=== PATIENT | female | born 1975 | race Caucasian/White ===

== ENCOUNTER 2023-07-11 16:22 | Emergency (ER) | payer BC, SELFPAY ==
[2023-07-11 16:24] VITALS: BP 146/84
[2023-07-11 17:34] VITALS: BMI 31.5
[2023-07-11 17:37] VITALS: BP 111/81
[2023-07-11 17:52] LABS: % Basophils 0.5 % (0-2); % Eosinophils 0.4 % (0-6); % Immature Granulocytes 0.1 % (0-0.5); % Lymphocytes 27.2 % (20.5-51.1); % Monocytes 6.2 % (1.7-9.3); % Neutrophils 65.6 % (42.2-75.2); Absolute Monocytes 0.5 10^3/uL (0.1-0.6); Absolute Neutrophils 4.9 10^3/uL (1.4-6.5); Hematocrit 34.3 % (37.0-47.0); Hemoglobin 11.1 g/dL (12.0-16.0); Mean Corp Hgb Conc. 32.4 g/dL (33.0-37.0); Mean Corpuscular Hgb 26.9 pg (27.0-31.0); Mean Corpuscular Volume 83.1 fL (81.0-99.0); Mean Platelet Volume 10.3 fL (7.4-10.4); Nucleated Red Blood Cells % 0 %; Platelet Count 314 10^3/uL (130-400); Red Blood Cell Count 4.13 10^6/uL (4.20-5.40); Red Cell Dist. Width 12.5 % (11.5-14.5); White Blood Cell Count 7.4 10^3/uL (4.8-10.8)
[2023-07-11 18:04] LABS: ALT (SGPT) 23 U/L (0-35); AST (SGOT) 34 U/L (14-36); Albumin 4.2 g/dl (3.5-5.0); Alkaline Phosphatase 97 U/L (38-126); Blood Urea Nitrogen 14 mg/dl (7-17); Calcium 10.1 mg/dl (8.4-10.2); Carbon Dioxide 25 mmol/L (22-30); Chloride 102 mmol/L (98-107); Estimated Creatinine Clearance 104 ml/min; Glucose 140 mg/dl (70-99); Sodium 137 mmol/L (135-145); Total Bilirubin 0.9 mg/dl (0.2-1.3); Total Protein 7.7 g/dl (6.3-8.2); eGFR > 60.00
[2023-07-11 18:05] LABS: Lipase 83 U/L (23-300)
[2023-07-11] MEDS: TORADOL 15 MG IV (18:42)
[2023-07-11 18:44] LABS: Urine Albumin Negative (Neg - Trace); Urine Bilirubin Negative (Negative); Urine Character Clear (Clear); Urine Color Yellow; Urine Glucose Negative (Negative); Urine Ketone Negative (Negative); Urine Leukocyte Negative (Negative); Urine Nitrite Negative (Negative); Urine Occult Blood Trace (Negative); Urine Urobilinogen Negative (Neg - 1+)
[2023-07-11 18:53] LABS: Urine Bacteria Few (Negative); Urine Red Blood Cell 0-2 /HPF (0-2); Urine Squamous Cell 0-2 /LPF (Few); Urine White Cell 0-2 /HPF (0-5)
--- NOTE | 2023-07-11 20:18 | ED.GENMED ---
History of Present Illness
General
Chief Complaint: Flank Pain
Time Seen by Provider: 07/11/23 17:06
Travel History
Have you had any contact with someone who has COVID-19?: No
Do you have any symptoms of coronavirus? Fever > 100 degrees, chills, cough, shortness of breath, sore throat, loss of taste or smell, muscle aches, or headache?: No
History of Present Illness
History of Present Illness:
48-year-old female presents the emergency department for evaluation of right upper quadrant abdominal pain ongoing for the past 2 to 3 days. Pain is constant but seems to worsen about 30 minutes after food intake. Denies any associated nausea or
vomiting. Denies any lower urinary tract voiding symptoms, diarrhea, fever, chills, or sweats. Prior abdominal surgery includes hysterectomy
Past History
Past History
ED Past Medical History: None
ED Past Surgical History: Gynecological and Tonsilectomy
Social History
Tobacco: Non-smoker
Alcohol: None
Drug: None
Personal:
Living: with family
Employment: Employed (software)
Family History
Family History: Other (n/c)
Review of Systems
Review of Systems
Allergies reviewed?: Yes
All Other Systems: ROS reviewed and negative except as documented in HPI and ROS
Phy Exam
Physical Exam
Physical Exam:
GEN: Well appearing, NAD, WDWN
Eyes: PERRLA, EOMs intact, no scleral icterus
HENT: NCAT, oral mucosa moist
Lungs: CTAB, no wheezes, rales, rhonchi, normal chest wall excursion
Cardiac: RRR, no M/R/G, no peripheral edema. Radial pulses 2+ bilat
Abdomen: Soft, mild epigastric and right upper quadrant tenderness, negative Barrios sign
Neuro: AO x 3
MSK: No gross deformity or ecchymosis. No edema. No digital clubbing
Skin: No rashes, petechiae. Normal color, no pallor or jaundice.
Psych: Calm, cooperative, proper hygiene
Course
Orders/Labs/Results
Orders:
Orders
07/11/23 17:35
Ketorolac [Toradol] 15 mg IV NOW STA
US Abdomen Complete/Upper Urgent
Comment:
Reason For Exam: RUQ pain
07/11/23 17:40
Complete Blood Count/With Diff Urgent
Comprehensive Metabolic Panel Urgent
Lipase Urgent
07/11/23 18:38
Urinalysis Reflex To Culture Urgent
Date Specimen was Collected: 07/11/23
Time Specimen was Collected: 18:08
Urine Microscopic Reflex Cult Urgent
Abnormal Lab Results
07/11/23 07/11/23
17:40 18:38
RBC 4.13 L 10^6/uL
(4.20-5.40)
Hgb 11.1 L g/dL
(12.0-16.0)
Hct 34.3 L %
(37.0-47.0)
MCH 26.9 L pg
(27.0-31.0)
MCHC 32.4 L g/dL
(33.0-37.0)
Glucose 140 H mg/dl
(70-99)
Ur Occult Blood Reflex Trace A
(Negative)
Urine Bacteria (Reflex) Few A
(Negative)
07/11/23 17:40
07/11/23 17:40
Vital Signs
Initial and Last Documented VS:
Initial Vital Signs
Temp Pulse Resp BP Pulse Ox
99 F 101 16 146/84 96
07/11/23 16:24 07/11/23 16:24 07/11/23 16:24 07/11/23 16:24 07/11/23 16:24
Last Documented Vital Signs
Temp Pulse Resp BP Pulse Ox
98.6 F 89 18 111/81 96
07/11/23 17:37 07/11/23 17:37 07/11/23 17:37 07/11/23 17:37 07/11/23 17:37
MDM/Problems Addressed
MDM/Problems Addressed:
Workup is negative, likely gastritis given increased NSAID use recently and use of SSRIs. Will start PPIs and Carafate
*Critical Care Note
Total Time (30-74mins, 75-104mins- exclusive of procedures): Not Applicable
ED Attending Note
-
Portions of this chart may have been created with voice recognition software.� Occasional wrong word or��sound alike� substitutions may have occurred due to the inherent limitations of voice recognition software.
Discharge Plan
Departure
Patient Disposition: Home (Routine Discharge)
Date of Disposition: 07/11/23
Time of Disposition: 20:20
Patient with high blood pressure during this ER visit?: No
Discharge Problem:
Gastritis
Instructions: Gastritis (DC)
Prescriptions:
New
pantoprazole [Protonix] 40 mg tablet,delayed release (DR/EC)
40 mg PO DAILY Qty: 14 0RF
sucralfate [Carafate] 1 gram tablet
1 g PO AC Qty: 30 0RF
No Action
conjugated estrogens [Premarin] 0.625 MG tablet
0.625 mg PO DAILY
fluoxetine 20 MG capsule
30 mg PO DAILY
cholecalciferol (vitamin D3) [Vitamin D3] 2,000 UNIT capsule
2,000 unit PO DAILY
Referrals:
Rubi Nieto NP [Family Provider] -
Interventions
Interventions:
*Risk Screen - Suicide Last Done: 07/11/23 16:24
*General Assessment Last Done: 07/11/23 16:24
*Neglect/Abuse Screening Last Done: 07/11/23 16:24
YF-Ipmabt-Bgvnxlxdpl Assessment Last Done: 07/11/23 17:31
ED-Female Genitourinary Assessment Last Done: 07/11/23 17:31
Discharge Date and Time
Print Language: MONGOLIAN
[2023-07-11] MEDS: PROTONIX IV 40 MG IV (20:24)
[2023-07-11 20:34] VITALS: BP 110/80
== END 2023-07-11 20:36 | disposition home or self-care (01) ==
LOC: EMR 16:22
PROVIDERS: Physician Assistant; EMERGENCY PHYSICIAN Emergency Medicine; FAMILY PHYSICIAN Internal Medicine
DX: K29.00 Acute gastritis without bleeding (principal); Z88.1 Allergy status to other antibiotic agents; Z88.2 Allergy status to sulfonamides; Z88.8 Allergy status to other drugs, medicaments and biological substances; Z91.048 Other nonmedicinal substance allergy status
CPT/HCPCS: 99284; 96374; 96375; 76700; 80053; 81003; 81015; 83690; 85025

== ENCOUNTER → 2023-07-16 12:10 | Outpatient (REF) | payer BC, SELFPAY | LOC: HWRAD 12:10 | PROVIDERS: ATTENDING PHYSICIAN Internal Medicine; FAMILY PHYSICIAN Internal Medicine | DX: R31.9 Hematuria, unspecified (principal); R07.81 Pleurodynia; R10.11 Right upper quadrant pain | CPT/HCPCS: 71101; 74176 ==

== ENCOUNTER 2024-09-10 06:33 | Emergency (ER) | payer BC, SELFPAY ==
[2024-09-10 06:37] VITALS: BP 140/83
--- NOTE | 2024-09-10 07:11 | ED.GENMED ---
History of Present Illness
General
Chief Complaint: Chest Pain
Time Seen by Provider: 09/10/24 07:11
History of Present Illness
History of Present Illness:
PAST MEDICAL HISTORY AND REVIEW OF OLD RECORDS
- The patient has a history of mitral valve prolapse and is a former smoker. I reviewed records, the patient was seen here diagnosed with gastritis last year. She was also here 7 years ago with alcohol intoxication.
Note:
CHIEF COMPLAINT(S)
Chest pain.
HISTORY OF PRESENT ILLNESS
The patient is a 49-year-old female who presented with the primary complaint of chest pain. The pain started yesterday and has been described as a 'weird pain' located centrally in the chest. The patient mentioned that this pain initially occurred
when she held her breath and felt like it was moving around. The pain is exacerbated when breathing in, although the patient is uncertain if it is due to anxiety. There was no significant pain upon palpation of the chest or upper abdomen. This
morning, the patient experienced that the pain did not feel right during activities like walking and stretching. There is no recent history of blood clots, though she mentioned a family history of blood clots. She reported a previous diagnosis of
gastritis about a year ago, but her current pain does not resemble her previous symptoms associated with that condition. There is no vomiting or significant swelling in the legs.
EXTERNAL RECORDS REVIEWED
The patients EKG was reviewed and appeared normal, indicating no immediate need for intervention. A history of gastritis from a year ago was noted.
SOCIAL HISTORY
The patient is a former cigarette smoker, having quit smoking several years ago.
REVIEW OF SYSTEMS
- Respiratory: Pain with inhalation.
- Gastrointestinal: No vomiting, no burning sensation similar to previous gastritis.
- Cardiovascular: Chest pain, no lower extremity swelling.
PHYSICAL EXAM
General: Alert, but appears uncomfortable when she changes position of her torso
Skin: Warm, dry.
Head: Normocephalic, atraumatic.
Neck: Supple, trachea midline.
Eye, Ears, Nose, Mouth and Throat: Oral mucosa moist.
Cardiovascular: Normal peripheral perfusion, no edema. No murmurs, regular rhythm, very mild anterior chest wall tenderness. No rubs
Respiratory: Respirations are non-labored. Breath sounds clear
Gastrointestinal: Abdomen non-distended.
Back: Normal range of motion, normal alignment.
Musculoskeletal: Normal range of motion, normal strength.
Neurological: Alert and oriented to person, place, time, and situation, no focal neurological deficit observed.
Psychiatric: Cooperative, appropriate mood and affect. She does appear somewhat anxious though
PLAN
1. Perform blood work, including cardiac biomarkers.
2. Conduct a chest X-ray.
3. Investigate gastrointestinal causes, such as gastritis.
4. Consider treatment with an antacid, such as Pepsid and Maalox.
5. Monitor and evaluate the need for further cardiac evaluation based on test results.
DIFFERENTIAL DIAGNOSIS
The Differential Diagnosis includes, in no particular order and is not limited to:
1. Gastroesophageal reflux disease (GERD)
2. Myocardial ischemia
3. Pulmonary embolism
4. Costochondritis
5. Anxiety or panic attack
6. Pleurisy
7. Pneumonia
8. Aortic dissection
9. Pericarditis
10. Gastritis
RADIOLOGY
- Chest x-ray shows no acute abnormality.
EKG
- Sinus 83, leftward axis deviation, no acute ST abnormality, no significant change from 03/04/2017
LABS
- White count normal, hemoglobin 11.2, D-dimer 0.32, chemistries unremarkable, minimal elevation of transaminases which are insignificant, troponin less than 0.012, lipase normal
UPDATE
- Gave Carafate (sulfa allergy therefore did not give Maalox) and Pepcid.
SUMMARY OF ENCOUNTER
The patient, a 49-year-old female, presented to the emergency department with central chest pain, exacerbated by inhalation and movements like walking. An EKG and cardiac biomarkers were performed, both appearing normal, with no signs of myocardial
ischemia. Testing for blood clots was also normal, indicating a low likelihood of a pulmonary embolism. Chemistry levels were reported as normal as well. A chest X-ray showed no abnormalities. Given her symptoms and considering potential gastritis
or gastrointestinal causes, she was administered famotidine (Pepcid) and sucralfate (Carafate) but continued to experience discomfort. Subsequently, the patient was given a dose of ketorolac (listed as TORDOTS, a non-narcotic anti-inflammatory drug)
to address persistent pain. Repeat EKG and possibly blood work will be conducted to rule out any changes.
PLAN
1. Administer a dose of ketorolac for continued chest pain relief.
2. Repeat the EKG to monitor cardiac status.
3. Consider repeating blood work for further evaluation if symptoms persist.
INDEPENDENT REVIEW OF LABS AND INTERPRETATION OF TESTS
- My independent review of cardiac blood work indicates normal results, showing no signs of myocardial ischemia.
- My independent review of the test for blood clots indicates normal results, reducing the suspicion of pulmonary embolism.
- My independent interpretation of chemistry levels indicates no abnormality.
- My independent chest X-ray interpretation shows no abnormalities.
MEDICATION RECONCILIATION
- Famotidine was previously administered.
- Sucralfate was administered.
- A dose of ketorolac was administered for pain relief.
MEDICAL DECISION MAKING
- Number and Complexity of Problems Addressed: Chronic conditions affecting care. Differential Diagnosis includes gastroesophageal reflux disease (GERD), myocardial ischemia, pulmonary embolism, costochondritis, anxiety or panic attack, pleurisy,
pneumonia, aortic dissection, pericarditis, gastritis.
- Data:
- Category 1: Tests and documents reviewed include normal EKG, cardiac biomarkers, blood clot test, chemistry levels, and chest X-ray.
- Category 2: My independent interpretation of the chest X-ray and cardiac blood work were considered in decision-making.
- Risk: Consideration of Admission/Observation: Escalation of care including admission/observation was considered given the complexity and risk of the patients presenting complaint, exam findings, and/or underlying comorbidities. However, ultimately
I feel the patient is safe for outpatient management with close follow-up. Reasoning: Work-up is reassuring, does not reveal any acute life/organ threatening processes, patients symptoms are well-controlled upon reevaluation, reexamination is
reassuring, vitals are stable, patient agreeable with discharge, and reliable for follow-up.
DIAGNOSIS
1. Chest pain, unspecified - R07.9
2. Gastroesophageal reflux disease (GERD) without esophagitis - K21.9
3. Gastritis, unspecified, without bleeding - K29.70
Pain persisted while in the ED and actually seem to get a little bit worse. A repeat troponin and EKG were obtained. Repeat troponin again normal.
Pain continues despite receiving Toradol and GI counter medications. I do not hear any rubs that would be consistent with pericarditis and EKG is not consistent with pericarditis
I am giving a short course of tramadol (patient does state prior history of substance abuse with narcotics and will avoid the more euphoric causing Percocet/Vicodin). Recommended NSAIDs. I also recommended a 2-week course of PPI.
Past History
Past History
ED Past Medical History: None
ED Past Surgical History: Gynecological and Tonsilectomy
Social History
Tobacco: Non-smoker
Alcohol: None
Drug: None
Personal:
Living: with family
Employment: Employed (software)
Family History
Family History: Other (n/c)
Phy Exam
Physical Exam
Physical Exam:
See HPI
Scores
Heart Score for Chest Pain Patients
STEMI patient?: Not applicable
Course
Orders/Labs/Results
Orders:
Orders
09/10/24 06:41
ECG [Electrocardiogram (*1)] Urgent
Reason for Study: Chest Pain
EKG- Treatment ONCE
09/10/24 07:17
Famotidine [Pepcid] 20 mg IV NOW STA
Sucralfate Suspension [Carafate Suspension] 1 gm PO NOW STA
CR Chest - 2 Views Urgent
Comment:
Reason For Exam: pain center
09/10/24 07:33
Complete Blood Count/With Diff Urgent
Comprehensive Metabolic Panel Urgent
D-Dimer Urgent
Lipase Urgent
Troponin I Urgent
09/10/24 08:30
Ketorolac [Toradol] 15 mg IV NOW STA
09/10/24 08:33
Electrocardiogram (*1) Urgent
Reason for Study: Chest Pain
EKG- Treatment ONCE
09/10/24 11:09
Troponin I Urgent
Abnormal Lab Results
09/10/24
07:33
Hgb 11.2 L g/dL
(12.0-16.0)
Hct 34.3 L %
(37.0-47.0)
MCH 26.7 L pg
(27.0-31.0)
MCHC 32.7 L g/dL
(33.0-37.0)
MPV 10.5 H fL
(7.4-10.4)
AST 41 H U/L
(14-36)
ALT 36 H U/L
(0-35)
09/10/24 07:33
09/10/24 07:33
Vital Signs
Initial and Last Documented VS:
Initial Vital Signs
Temp Pulse Resp BP Pulse Ox
36.7 C 104 20 140/83 97
09/10/24 06:37 09/10/24 06:37 09/10/24 06:37 09/10/24 06:37 09/10/24 06:37
Last Documented Vital Signs
Temp Pulse Resp BP Pulse Ox
36.7 C 98 23 110/74 95
09/10/24 06:37 09/10/24 11:00 09/10/24 11:00 09/10/24 10:00 09/10/24 11:00
*Pulse Oximetry
SaO2: 97
Oxygen Mode of Delivery: Room air
Patient hypoxic: no
*Critical Care Note
Total Time (30-74mins, 75-104mins- exclusive of procedures): Not Applicable
ED Attending Note
-
Portions of this chart may have been created with voice recognition software.� Occasional wrong word or��sound alike� substitutions may have occurred due to the inherent limitations of voice recognition software.
Discharge Plan
Departure
Prescriptions:
No Action
conjugated estrogens [Premarin] 0.625 MG tablet
0.625 mg PO DAILY
fluoxetine 20 MG capsule
30 mg PO DAILY
cholecalciferol (vitamin D3) [Vitamin D3] 2,000 UNIT capsule
2,000 unit PO DAILY
pantoprazole [Protonix] 40 mg tablet,delayed release (DR/EC)
40 mg PO DAILY Qty: 14 0RF
sucralfate [Carafate] 1 gram tablet
1 g PO AC Qty: 30 0RF
Referrals:
Rubi Nieto RN GERIATRIC [Family Provider, Internal Medicine]
Interventions
Interventions:
*Risk Screen - Suicide Last Done: 09/10/24 06:37
*Neglect/Abuse Screening Last Done: 09/10/24 06:37
*ED- Fall Risk Assessment Last Done: 09/10/24 06:37
*ED COVID-19 Vaccine History Last Done: 09/10/24 06:37
ED- Cardiac Assessment Last Done: 09/10/24 07:23
Discharge Date and Time
Print Language: [id number]
[2024-09-10 07:22] VITALS: BMI 33.8
[2024-09-10] MEDS: CARAFATE SUSPENSION 1 GM PO (07:37)
[2024-09-10] MEDS: PEPCID 20 MG IV (07:37)
[2024-09-10 07:45] LABS: Hematocrit 34.3 % (37.0-47.0); Hemoglobin 11.2 g/dL (12.0-16.0); Mean Corp Hgb Conc. 32.7 g/dL (33.0-37.0); Mean Corpuscular Volume 81.7 fL (81.0-99.0); Nucleated Red Blood Cells % 0 %; Platelet Count 303 10^3/uL (130-400); Red Cell Dist. Width 12.3 % (11.5-14.5)
[2024-09-10 07:55] LABS: D-Dimer 0.32 ug/mlFEU (0.00-0.50)
[2024-09-10 07:58] LABS: ALT (SGPT) 36 U/L (0-35); AST (SGOT) 41 U/L (14-36); Albumin 4.3 g/dl (3.5-5.0); Alkaline Phosphatase 95 U/L (38-126); Blood Urea Nitrogen 15 mg/dl (7-17); Calcium 9.7 mg/dl (8.4-10.2); Carbon Dioxide 25 mmol/L (22-30); Chloride 107 mmol/L (98-107); Estimated Creatinine Clearance 107 ml/min; Glucose 99 mg/dl (70-99); Lipase 88 U/L (23-300); Potassium 4.1 mmol/L (3.5-5.1); Sodium 138 mmol/L (135-145); Total Protein 7.5 g/dl (6.3-8.2); eGFR > 60.00
[2024-09-10 08:09] LABS: Troponin I < 0.012 ng/ml
[2024-09-10] MEDS: TORADOL 15 MG IV (08:38)
[2024-09-10 09:12] VITALS: BP 116/79
[2024-09-10 10:00] VITALS: BP 110/74
[2024-09-10 11:58] LABS: Troponin I < 0.012 ng/ml
[2024-09-10 12:15] VITALS: BP 127/80
== END 2024-09-10 12:15 | disposition home or self-care (01) ==
LOC: EMR 06:33
PROVIDERS: EMERGENCY PHYSICIAN Emergency Medicine; FAMILY PHYSICIAN Internal Medicine
DX: R07.89 Other chest pain (principal); I34.1 Nonrheumatic mitral (valve) prolapse; K21.9 Gastro-esophageal reflux disease without esophagitis; Z87.19 Personal history of other diseases of the digestive system
CPT/HCPCS: 99283; 71046; 80053; 83690; 84484; 85025; 85379; 93005